=== PATIENT | female | born 1995 | race Caucasian/White ===

== ENCOUNTER 2017-11-08 21:15 | Emergency (ER) | payer OTHER ==
[~2017-11-08] VITALS: Ht 157.5 cm; Wt 55.8 kg
[2017-11-08] MEDS ORDERED: DICLEGIS DR 101 EACH (21:37)
== END 2017-11-09 03:05 | disposition home or self-care (01) ==
LOC: ER 21:15
DX: O21.0 Mild hyperemesis gravidarum (principal); Z34.01 Encounter for supervision of normal first pregnancy, first trimester

== ENCOUNTER → 2018-01-10 | Outpatient (CLI) | payer OTHER ==
[~2018-01-10] MED LIST: DICLEGIS DR 101 EACH
== END | disposition home or self-care (01) ==
LOC: OBS/DEL 15:07
DX: O21.0 Mild hyperemesis gravidarum (principal); O60.02 Preterm labor without delivery, second trimester; Z34.02 Encounter for supervision of normal first pregnancy, second trimester

== ENCOUNTER 2018-04-26 11:02 | Outpatient (CLI) | payer OTHER | END 2018-04-26 21:49 | disposition home or self-care (01) | LOC: OBS/DEL 11:02 | DX: O76 Abnormality in fetal heart rate and rhythm complicating labor and delivery (principal); Z34.03 Encounter for supervision of normal first pregnancy, third trimester ==

== ENCOUNTER 2018-05-19 18:33 | Inpatient (IN) | payer OTHER ==
[~2018-05-19] VITALS: Ht 157.5 cm; Wt 76.7 kg
[2018-05-19] MEDS ORDERED: PRENATAL 19 TA1 EAC1 PO (22:35)
== END 2018-05-23 16:49 | disposition home or self-care (01) | DRG 788 ==
LOC: LDR 18:33 → OB/GYN 18:33 → LDR 20:40 → OB/GYN 23:37
PROVIDERS: ADMIT Obstetrics & Gynecology
PROC: 4A1HXCZ Monitoring of Products of Conception, Cardiac Rate, External Approach (ICD-10-PCS; 2018-05-19)
PROC: 10D00Z1 Extraction of Products of Conception, Low, Open Approach (ICD-10-PCS; principal; 2018-05-19 21:00)
DX: O76 Abnormality in fetal heart rate and rhythm complicating labor and delivery (principal); Z3A.39 39 weeks gestation of pregnancy; Z37.0 Single live birth

== ENCOUNTER 2023-04-28 21:05 | Outpatient (CLI) | payer OTHER ==
[~2023-04-28 21:05] MED LIST changes: +PRENATAL 19 TA1 EAC1 PO
[2023-04-28 22:07] LABS: HEMATOCRIT 35.9 % (36.0-45.00); HEMOGLOBIN 11.8 g/dL (12.0-15.00); MEAN CELL VOLUME 84.4 fL (80.00-100.00); MEAN CORPUSCULAR HEMOGLOBIN 27.7 pg (27.00-32.0); MEAN CORPUSCULAR HGB CONC 32.8 g/dl (32.0-36.0); PLATELET COUNT 294 K/uL (150-450); RED BLOOD COUNT 4.25 M/uL (4.00-6.00); RED CELL DISTRIBUTION WIDTH 13.6 % (11.5-14.5)
[2023-04-28 22:24] LABS: BILIRUBIN TOTAL 0.26 mg/dL (0.3-1.2); CALCIUM 9.3 mg/dL (8.5-10.1); CREATININE SERUM 0.38 mg/dL (0.55-1.02); GFR 201.65; GLOBULINA 3.5 G/DL (2.4-3.5); POTASSIUM 4.08 mEq/L (3.5-5.1); TOTAL PROTEIN 6.5 gm/dL (6.4-8.2)
== END 2023-04-29 06:27 | disposition home or self-care (01) ==
LOC: OBS/DEL 21:05
PROVIDERS: ATTEND Specialist
DX: O36.8120 Decreased fetal movements, second trimester, not applicable or unspecified (principal); Z3A.25 25 weeks gestation of pregnancy

== ENCOUNTER 2023-06-17 12:30 | Emergency (ER) | payer OTHER ==
[~2023-06-17] VITALS: Ht 162.6 cm; Wt 93.0 kg
[2023-06-17] MEDS ORDERED: 0.9 % SODIUM CHLORIDE 1,000 ML IV STA (13:26)
[2023-06-17 14:10] LABS: HEMATOCRIT 34.9 % (36.0-45.00); HEMOGLOBIN 11.8 g/dL (12.0-15.00); MEAN CELL VOLUME 83.9 fL (80.00-100.00); MEAN CORPUSCULAR HEMOGLOBIN 28.3 pg (27.00-32.0); MEAN CORPUSCULAR HGB CONC 33.7 g/dl (32.0-36.0); PLATELET COUNT 315 K/uL (150-450); RED BLOOD COUNT 4.16 M/uL (4.00-6.00); RED CELL DISTRIBUTION WIDTH 13.3 % (11.5-14.5)
[2023-06-17 14:42] LABS: CALCIUM 8.8 mg/dL (8.5-10.1); CREATININE SERUM 0.54 mg/dL (0.55-1.02); GFR 134.43
[2023-06-17 14:58] LABS: POTASSIUM 2.82 mEq/L (3.5-5.1)
[2023-06-17 15:56] LABS: URINE APPEARANCE Clear; URINE BILIRRUBIN Negative (NEGATIVE); URINE BLOOD Negative; URINE COLOR Yellow; URINE LEUKOCYTE Negative; URINE NITRATE Negative; URINE PROTEIN Negative (NEGATIVE); URINE UROBILINOGEN 0.2 E.U./dl
[2023-06-17 15:57] LABS: URINE BACTERIA 5866.2 uL (0.0-1933); URINE EPITHELIAL CELLS 15.1 uL (0.0-38.8); URINE RBC 5.8 uL (0.0-20.8); URINE WBC 45.9 uL (0.0-23.2)
[2023-06-17] MEDS ORDERED: POTASSIUM CHLORIDE/D5-0.9%NACL 40 MEQ/1,000 ML PIGGYBAG IV SCH (16:00)
[2023-06-17 16:34] LABS: URINE GLUCOSE 250 MG/DL (NEGATIVE)
[2023-06-17] MEDS ORDERED: POTASSIUM CHLORIDE IN 0.9%NACL 40 MEQ/1,000 ML PIGGYBAG IV ONE (18:30)
[2023-06-17] MEDS ORDERED: POTASSIUM CHLORIDE 10 MEQ CAPSULE PO ONE (18:30)
[2023-06-17 22:09] LABS: ALBUMIN 2.4 gm/dL (3.4-5.0); BILIRUBIN TOTAL 0.22 mg/dL (0.3-1.2); CALCIUM 8.3 mg/dL (8.5-10.1); CREATININE SERUM 0.46 mg/dL (0.55-1.02); GFR 161.75; POTASSIUM 3.52 mEq/L (3.5-5.1); TOTAL PROTEIN 6.4 gm/dL (6.4-8.2)
== END 2023-06-17 22:46 | disposition home or self-care (01) ==
LOC: ER 12:30
PROVIDERS: Emergency Medicine; General Practice
DX: O22.43 Hemorrhoids in pregnancy, third trimester (principal); Z3A.32 32 weeks gestation of pregnancy; R19.7 Diarrhea, unspecified; Z20.822 Contact with and (suspected) exposure to COVID-19; Z88.6 Allergy status to analgesic agent

== ENCOUNTER 2023-07-25 09:30 | Inpatient (IN) | payer OTHER ==
[~2023-07-25] VITALS: Ht 162.6 cm; Wt 3.2 kg
[2023-07-25 12:05] LABS: PH,URINE 6.5 (5.0-8.0); URINE APPEARANCE Clear; URINE BILIRRUBIN Negative (NEGATIVE); URINE BLOOD Negative; URINE COLOR Yellow; URINE LEUKOCYTE Negative; URINE NITRATE Negative; URINE PROTEIN Negative (NEGATIVE)
[2023-07-25 12:06] LABS: HEMATOCRIT 35.1 % (36.0-45.00); HEMOGLOBIN 11.6 g/dL (12.0-15.00); MEAN CELL VOLUME 82.3 fL (80.00-100.00); MEAN CORPUSCULAR HEMOGLOBIN 27.3 pg (27.00-32.0); MEAN CORPUSCULAR HGB CONC 33.1 g/dl (32.0-36.0); PLATELET COUNT 322 K/uL (150-450); RED BLOOD COUNT 4.26 M/uL (4.00-6.00)
[2023-07-25 12:08] LABS: URINE BACTERIA 1664.1 uL (0.0-1933); URINE RBC 4.7 uL (0.0-20.8)
[2023-07-25 12:27] LABS: INR 0.94; PARTIAL THROMBOPLASTIN TIME 27.3 SECONDS (22.0-34.0); PROTHROMBIN TIME 9.9 SECONDS (9.0-11.5)
[2023-07-25 13:31] LABS: URINE GLUCOSE 250 MG/DL (NEGATIVE)
[2023-08-01] MEDS ORDERED: ERYTHROMYCIN BASE 3.5 GM OINT...G. OP ONE (07:22)
[2023-08-01] MEDS ORDERED: OXYTOCIN 10 UNITS/ML VIAL ONE (07:22)
[2023-08-01] MEDS ORDERED: CEFAZOLIN SODIUM 1,000 MG VIAL ONE (07:22)
[2023-08-01] MEDS ORDERED: PROMETHAZINE HCL 50 MG/ML AMPUL IM PRN (08:45)
[2023-08-01] MEDS ORDERED: RINGERS SOLUTION,LACTATED 1,000 ML IV SCH (08:45)
[2023-08-01] MEDS ORDERED: MEPERIDINE HCL/PF 50 MG/ML VIAL IM PRN (08:45)
[2023-08-01] MEDS ORDERED: OXYTOCIN 10 UNITS/ML VIAL IV ONE (09:15)
[2023-08-01] MEDS ORDERED: ERYTHROMYCIN BASE 1 GM TUBE OP ONE (09:15)
[2023-08-01] MEDS ORDERED: CEFAZOLIN SODIUM 1,000 MG VIAL IV ONE (09:15)
[2023-08-01] MEDS ORDERED: ONDANSETRON HCL 2 MG/ML VIAL ONE (09:21)
[2023-08-01] MEDS ORDERED: ONDANSETRON HCL 2 MG/ML VIAL IV ONE (09:40)
[2023-08-01] MEDS ORDERED: MORPHINE SULFATE 4 MG/ML VIAL IV ONE ×2 (09:45→11:25)
[2023-08-01] MEDS ORDERED: CEFAZOLIN SODIUM 1,000 MG VIAL IV SCH (14:00)
[2023-08-02 02:03] LABS: HEMATOCRIT 35.8 % (36.0-45.00); HEMOGLOBIN 11.7 g/dL (12.0-15.00); MEAN CELL VOLUME 79.9 fL (80.00-100.00); MEAN CORPUSCULAR HEMOGLOBIN 26.3 pg (27.00-32.0); MEAN CORPUSCULAR HGB CONC 32.8 g/dl (32.0-36.0); PLATELET COUNT 301 K/uL (150-450); RED BLOOD COUNT 4.48 M/uL (4.00-6.00); RED CELL DISTRIBUTION WIDTH 14.3 % (11.5-14.5)
[2023-08-02] MEDS ORDERED: DOCUSATE SODIUM 100MG CAP PO SCH (09:49)
[2023-08-02] MEDS ORDERED: SIMETHICONE 125 MG CAPSULE PO SCH (09:49)
[2023-08-02] MEDS ORDERED: ACETAMINOPHEN WITH CODEINE 1 UDTAB TABLET PO PRN ×2 (10:00→16:57)
== END 2023-08-04 11:58 | disposition home or self-care (01) | DRG 785 ==
LOC: O/R 08-01 04:50 → OB/GYN 08-01 04:50
PROVIDERS: ADMIT Specialist; ATTEND Specialist
PROC: 0UB70ZZ Excision of Bilateral Fallopian Tubes, Open Approach (ICD-10-PCS; 2023-08-01)
PROC: 4A1HXCZ Monitoring of Products of Conception, Cardiac Rate, External Approach (ICD-10-PCS; 2023-08-01)
PROC: 10D00Z1 Extraction of Products of Conception, Low, Open Approach (ICD-10-PCS; principal; 2023-08-01 13:30)
DX: O34.211 Maternal care for low transverse scar from previous cesarean delivery (principal); Z3A.39 39 weeks gestation of pregnancy; Z37.0 Single live birth; Z20.822 Contact with and (suspected) exposure to COVID-19; Z30.2 Encounter for sterilization

== ENCOUNTER 2025-01-03 15:33 | Emergency (ER) | payer OTHER ==
[~2025-01-03] VITALS: Ht 157.5 cm; Wt 81.2 kg
[2025-01-03] MEDS ORDERED: 0.9 % SODIUM CHLORIDE 500 ML IV ONE (16:15)
[2025-01-03] MEDS ORDERED: ONDANSETRON HCL 2 MG/ML VIAL IV ONE (16:15)
[2025-01-03] MEDS ORDERED: FAMOTIDINE/PF 20 MG/2 ML VIAL IV ONE (16:15)
[2025-01-03 16:36] LABS: BASO % 0.5 % (0.1-1.2); EOS # 0.13 (0.04-0.54); EOS % 3.0 % (0.7-7.0); LYMPH # 1.58 (1.18-3.74); LYMPH % 36.3 % (19.3-53.1); MEAN PLATELET VOLUME 9.20 fl (9.4-12.4); MONO # 0.74 (0.24-0.82); NEUT # 1.88 (1.56-6.13); NEUT % 43.2 % (34.0-71.1); RED CELL DISTRIBUTION WIDTH 14.1 % (11.6-14.4)
[2025-01-03 16:38] LABS: MONO % 17.0 % (4.7-12.5)
[2025-01-03 17:08] LABS: ALT/SGPT 57 U/L (12-78); AST/SGOT 34 U/L (15-37); BILIRUBIN TOTAL 0.21 mg/dL (0.3-1.2); BILIRUBIN,CONJUGATED < 0.10 mg/dL (0.0-0.2); BUN CREA RATIO 17 (7.0-25.0); CREATININE SERUM 0.63 mg/dL (0.55-1.02); GFR 110.95; GLOBULINA 3.4 G/DL (2.4-3.5); GLUCOSE FASTING 91 mg/dL (65-100); OSMOLALITY SERUM 284 MOSM/KG (275-295)
[2025-01-03 19:03] LABS: COVID-19 AG NEGATIVE (NEGATIVE)
[2025-01-03] MEDS ORDERED: CARAFATE1 GM PO (19:42)
[2025-01-03] MEDS ORDERED: PEPCID AC20 MG PO (19:42)
[2025-01-03] MEDS ORDERED: ONDANSETRON ODT4 MG SL (19:55)
[2025-01-03] MEDS ORDERED: SUCRALFATE 1 G TABLET PO ONE (20:00)
== END 2025-01-03 20:25 ==
LOC: ER 15:33
PROVIDERS: General Practice
DX: K29.70 Gastritis, unspecified, without bleeding (principal); I95.9 Hypotension, unspecified; Z20.822 Contact with and (suspected) exposure to COVID-19; Z88.6 Allergy status to analgesic agent